=== PATIENT | male | born 1990 | race African-American/Black ===

== ENCOUNTER 2018-10-05 19:18 | Emergency (ER) | payer SELFPAY ==
[~2018-10-05] VITALS: Ht 185.4 cm; Wt 81.6 kg
[2018-10-05 19:18] VITALS: BP 134/78
[2018-10-05] MEDS ORDERED: Ketorolac 30mg Inj IM ONE (19:30)
[2018-10-05] MEDS ORDERED: Methocarbamol 500mg tab ORAL ONE (19:30)
[2018-10-05] MEDS ORDERED: IBUPROFEN600 MG ORAL (19:37)
[2018-10-05] MEDS ORDERED: ROBAXIN500 MG PO (19:37)
[2018-10-05] MEDS ORDERED: LIDOCAINE700 M1 TP (19:37)
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
[2018-10-05 20:26] VITALS: BP 134/78
--- NOTE | 2018-10-06 11:36 | Diagnostic Imaging Report ---
Indication: Back pain Comparison: None Findings: 3 views of the lumbar spine were obtained. No acute fracture or malalignment is identified. Vertebral body heights and disk spaces are well maintained. Posterior elements are unremarkable. The 12th ribs are asymmetric with a hypoplastic left 12th rib. Impression: No acute findings.
== END 2018-10-05 21:26 | disposition home or self-care (01) ==
LOC: EDBD 19:18 → EMR 19:45
DX: M54.5 Low back pain (principal); M54.2 Cervicalgia; V43.62XA Car passenger injured in collision with other type car in traffic accident, initial encounter; Y93.9 Activity, unspecified; Y92.9 Unspecified place or not applicable; Y99.9 Unspecified external cause status
CPT/HCPCS: 72020; 96372; 99283